=== PATIENT | male | born 2000 | race Caucasian/White ===

== ENCOUNTER 2020-10-10 10:57 | Emergency (ER) | payer SELFPAY ==
[2020-10-10 11:04] VITALS: BP 139/78; PULSE 69; RESP 16; TEMP 36.9; O2SAT 96; BMI 29.2
--- NOTE | 2020-10-10 11:04 | W.ED.UPPEXIN ---
HPI - Extremity Injury (Upper) General: Chief Complaint: Extremity Injury, Upper Stated Complaint: R HAND INJURY Time Seen by Provider: 10/10/20 11:00 Source: patient Mode of arrival: ambulatory Limitations: no limitations History of Present Illness: HPI narrative: Patient is a 20-year-old male who presents to ED today for evaluation of a right middle finger injury. Patient states he accidentally smashed the finger in between 2 pallets of wood. complaint: injury to: right and finger Onset (ago): hour(s) Other Extremity Injury: Right: fingers (middle) Other injuries: none Place: home Severity: moderate Exacerbating factors: movement of extremity and other (palpation) Context: crush Associated symptoms: Reports no associated symptoms Review of Systems Musc: Reports: extremity pain (R finger) Skin/Breast: Reports: other (no lacerations) Neuro: Denies: numbness in extremities or sensory changes Physical Exam Const: COMMON NORMALS: no acute distress, patient oriented x3, no limitations, healthy appearing and alert Extremity: NARRATIVE EXTREMITY EXAM: small R finger subungual hematoma; TTP to middle and distal phalanx; no lacerations/nail damage/breaks in skin Neuro: COMMON NORMALS: patient oriented x3 SENSORIUM/ORIENTATION: Yes alert Course Vital Signs: Vital signs: Vital Signs Temperature 98.5 F 10/10/20 11:04 Pulse Rate 69 10/10/20 11:04 Respiratory Rate 16 10/10/20 11:04 Blood Pressure 139/78 10/10/20 11:04 Pulse Oximetry 96 10/10/20 11:04 MDM - Extremity Injury (Upper) MDM Narrative: Medical decision making narrative: Will splint and have him follow up with orthopedics. Imaging Data^: XR R finger: Radiologist's impression: [address] [address] XRay Report Signed Patient: Angel ChoiAlbanamelia #: [id number] : 2000Acct#:[id number] Age/Sex: 20 / MADM Date: 10/10/20 Loc: ERRoom/Bed: Attending Dr: Ordering Provider/Ordering MD: Danielle Oconnor Date of Service: 10/10/20 Procedure(s): XR finger RT min 2V 78826 Accession Number(s): [id number] Report Number: [id number] PROCEDURE INFORMATION: Exam: XR Right Finger(s) Exam date and time: 10/10/2020 11:14 AM Age: 20 years old Clinical indication: Injury or trauma; Other: Smashed finger; Crushing; Right; Middle finger; Injury date: 10/10/20; Additional info: Crush injury; Middle finger TECHNIQUE: Imaging protocol: XR Right fingers. Views: Minimum 2 views. COMPARISON: No relevant prior studies available. FINDINGS: Bones/joints: There is a comminuted fracture of the tuft of the distal phalanx with about 1 mm of maximum displacement. Soft tissues: Normal. XR/XR finger RT min 2V 57510 IMPRESSION: Comminuted fracture of the tuft of the distal phalanx. Dictated By:Ant Downey Signed By:Evgeny Downey Date/Time:10/10/20 1204 DD/ 1202 Discharge Plan Discharge Patient Disposition: Home Clinical Impression: Fracture of distal phalanx of finger Qualifiers: Encounter type: initial encounter Finger: middle finger Fracture type: closed Fracture alignment: nondisplaced Laterality: right Qualified Code(s): S62.662A - Nondisplaced fracture of distal phalanx of right middle finger, initial encounter for closed fracture Condition: Stable Discharge Orders: Discharge ED (Routine); Ordered 10/10/20 Ordered By: Danielle Oconnor Patient Instructions: Fractures - Phalanx (Finger), Finger Fracture (ED) Activity Restrictions/Additional Instructions: As discussed case management should contact you shortly to set you up with your orthopedic follow-up appointment. You need to wear splint at all times apart from showering or bathing. Coding Level of Care Code ED Lost Charge Card Clerk for Elving Fwd Exam Problem Focused
--- NOTE | 2020-10-10 11:12 | XRR_ITS ---
PROCEDURE INFORMATION: Exam: XR Right Finger(s) Exam date and time: 10/10/2020 11:14 AM Age: 20 years old Clinical indication: Injury or trauma; Other: Smashed finger; Crushing; Right; Middle finger; Injury date: 10/10/20; Additional info: Crush injury; Middle finger TECHNIQUE: Imaging protocol: XR Right fingers. Views: Minimum 2 views. COMPARISON: No relevant prior studies available. FINDINGS: Bones/joints: There is a comminuted fracture of the tuft of the distal phalanx with about 1 mm of maximum displacement. Soft tissues: Normal. XR/XR finger RT min 2V 26099 IMPRESSION: Comminuted fracture of the tuft of the distal phalanx.
--- NOTE | 2020-10-11 09:19 | DCPLANNER ---
application defense manager had message to schedule a follow up appointment for patient with ortho for a distal phalanx fracture. application defense manager called the ortho clinic, spoke with Cindi, gave clinic patients information. application defense manager was told that patients information would be printed and reviewed. Clinic will call patient with appointment information.
--- NOTE | 2020-10-18 15:19 | DCPLANNER ---
medical coding manager called the ortho clinic to confirm if a follow up appointment had been scheduled for patient. medical coding manager was told that clinic has tried to call patient to schedule a follow up appointment, messages have been left, clinic is waiting for patient to call clinic back to schedule appointment.
== END 2020-10-10 12:10 | disposition home or self-care (01) ==
PROVIDERS: Emergency Provider Physician Assistant
DX: S62.662A Nondisplaced fracture of distal phalanx of right middle finger, initial encounter for closed fracture (principal); W23.0XXA Caught, crushed, jammed, or pinched between moving objects, initial encounter
CPT/HCPCS: 73140; 99282

== ENCOUNTER 2022-06-27 14:46 | Emergency (ER) | payer SELFPAY ==
[2022-06-27 14:51] VITALS: BP 151/82; PULSE 90; RESP 16; TEMP 36.4; O2SAT 96; BMI 26.8
--- NOTE | 2022-06-27 14:59 | ED_ITS ---
HPI - Wound/Laceration General: Chief Complaint: Wound/Laceration Stated Complaint: left hand lac Time Seen by Provider: 06/27/22 15:15 History of Present Illness: Patient is in today for a laceration to his left thumb. He reports that he was chopping wood with an axe and hit his left thumb with the axe. He reports that he has not had a tetanus in at least 5 years. Associated symptoms: Denies chills or fever(s) Review of Systems Const: Denies: fever(s) or chills Card: Denies: chest pain or palpitations Resp: Denies: dyspnea, productive cough or non-productive cough Musc: Reports: other (Laceration left thumb) Physical Exam Const: COMMON NORMALS: no acute distress, patient oriented x3 and alert Resp: COMMON NORMALS: normal respiratory effort and No use of accessory muscles Extremity: NARRATIVE EXTREMITY EXAM: Left thumb laceration horizontal approximately 1-1/2 cm. Full flexion extension noted to the thumb. Bleeding is controlled. Laceration appears fairly superficial without involvement of deeper structures. EXTREMITY IMAGE (FRONT): 1. 1 and half centimeter laceration horizontal. No involvement of deeper structures appreciated on initial exam. Bleeding is controlled Neuro: COMMON NORMALS: patient oriented x3 SENSORIUM/ORIENTATION: Yes alert Procedures Laceration left thumb: Site: upper extremity Side (If applicable): left Size (cm): 1.5 Description: linear and clean Depth: simple, single layer Local Anesthetic: lidocaine 1% Amount of anesthesia used (mL): 3 Pre-repair: wound explored, irrigated extensively and deep structures intact Skin layer closed with: other (Prolene) Number of sutures: 4 Course Vital Signs: Vital signs: Vital Signs Temperature 97.5 F L 06/27/22 14:51 Pulse Rate 90 06/27/22 14:51 Respiratory Rate 16 06/27/22 14:51 Blood Pressure 151/82 06/27/22 14:51 Pulse Oximetry 96 06/27/22 14:51 Oxygen Delivery Me thod 06/27/22 14:51 MDM - Wound/Laceration Medical Decision Making Consider laceration, fracture given the mechanism of injury, retained foreign bodies given the mechanism of injury X-ray thumb does not show any acute osseous deformity. Laceration was repaired with sutures see procedure note. Patient tolerated well with no immediate complications. Advised patient of aftercare for sutures. Follow-up in 5 to 7 days for suture removal. Take antibiotic as directed first dose given here today. Return to ER sooner as needed for new or worsening symptoms. tetanus updated Lab Data Radiology Impressions Finger X-Ray 06/27/22 15:20 IMPRESSION: 1. No fracture or bony injury identified. Soft tissue laceration. Discharge Plan Discharge Patient Disposition: Home Clinical Impression: Laceration Condition: Stable Prescriptions: New cephalexin 500 mg capsule 500 mg PO Q12H 7 Days Qty: 14 0RF Discharge Orders: Discharge ED (Routine); Ordered 06/27/22 Ordered By: Karen Nieves Discharge Diet: Usual diet Discharge Activity: Resume usual activity Patient Instructions: Care For Your Stitches (DC) Activity Restrictions/Additional Instructions: Keep the sutures clean and dry. You will need them removed in 5 to 7 days. You may return to the ER for suture removal or go to your primary care office. Monitor closely for signs of infection. Take antibiotic as directed. Coding Level of Care Code ED Jewel Supervisor for Kat Fwd Exam Expanded Problem Focused
--- NOTE | 2022-06-27 15:20 | XR_ITS ---
WS: [id number] Exam: XR finger LT min 2V 25453 Date/Time of Exam: 06/27/2022 3:22 PM Reason For Exam: Laceration left thumb with axe No acute fracture or dislocation. Soft tissue laceration along the medial aspect of the thumb. No sof t tissue foreign bodies. XR/XR finger LT min 2V 01690 IMPRESSION: 1. No fracture or bony injury identified. Soft tissue laceration.
[2022-06-27] MEDS: cephALEXin 500 mg Capsule PO (16:29)
[2022-06-27] MEDS: tetanus-dipt-pertussis 0.5 mL SDV IM (16:29)
== END 2022-06-27 16:46 | disposition home or self-care (01) ==
PROVIDERS: Emergency Provider Nurse Practitioner Family
DX: S61.012A Laceration without foreign body of left thumb without damage to nail, initial encounter (principal); W27.0XXA Contact with workbench tool, initial encounter; Z23 Encounter for immunization
CPT/HCPCS: 12001; 73140; 90471; 90715; 99283

== ENCOUNTER 2024-03-04 17:14 | Emergency (ER) | payer SELFPAY ==
--- NOTE | 2024-03-04 17:15 | XRR_ITS ---
PROCEDURE INFORMATION: Exam: XR Right Hand Exam date and time: 03/04/2024 5:39 PM Age: 23 years old Clinical indication: Pain; Hand; Right; Additional info: Injury TECHNIQUE: Imaging protocol: Radiologic exam of the right hand. Views: 3 or more views. COMPARISON: No relevant prior studies available. FINDINGS: Bones/joints: No acute fracture or dislocation. Deformed appearance of the tuft of the 3rd distal phalanx, likely from prior remote injury. Soft tissues: Soft tissues are unremarkable as visualized. XR/XR hand RT min 3V* [id number] IMPRESSION: No acute fracture or dislocation.
[2024-03-04 17:19] VITALS: BP 162/87; PULSE 74; RESP 16; TEMP 36.7; O2SAT 98; BMI 28.5
--- NOTE | 2024-03-04 17:36 | W.ED.EXTPRO ---
HPI - Extremity Problem General: Chief complaint: Extremity Injury, Upper Stated complaint: right hand injury Time Seen by Provider: 03/04/24 17:32 Source: patient Mode of arrival: ambulatory Limitations: no limitations History of Present Illness: 23-year-old male states that 4 days ago he was working on a car and the transmission fell and smashed his right hand. He states been having pain to his right palm since that he rates pain a 6 out of 10 currently has no lacerations pain is worse with movement he is able to make a fist and fully move all his fingers. Denies any other injuries Associated symptoms: Deny chest pain, fever(s) or rash Related Data Allergies Allergy/AdvReac Type Severity Reaction Status Date / Time No Known Allergies Allergy Verified 10/10/20 11:09 Review of Systems Const: Denies: fever(s), chills, body aches or change in appetite ENMT: Denies: throat pain or dental pain Card: Denies: chest pain Resp: Denies: dyspnea GI: Denies: abdominal pain, nausea, vomiting or diarrhea Musc: Reports: extremity pain; Denies: neck pain or back pain Skin/Breast: Denies: rash Neuro: Denies: headache(s) Physical Exam Const: COMMON NORMALS: no acute distress, patient oriented x3 and healthy appearing HENMT: COMMON NORMALS: normocephalic and atraumatic HEAD & SCALP: normocephalic and atraumatic Neck/C-Spine: COMMON NORMALS: full ROM and supple Chest: COMMONS NORMALS: normal inspection of the chest Resp: COMMON NORMALS: normal respiratory effort Extremity: COMMON NORMALS: full ROM NARRATIVE EXTREMITY EXAM: Tenderness over right palm no obvious deformities he is able to fully extend his fingers he is able to make a fist without any difficulty Neuro: COMMON NORMALS: patient oriented x3, moves all extremities and no focal motor deficits Psych: COMMON NORMALS: mental status grossly normal, Normal thought process present and cooperative THOUGHT PROCESS: Normal thought process present Skin: COMMON NORMALS: no rashes or lesions noted and no wounds GENERAL SKIN EXAM: no rashes or lesions noted Course Vital Signs: Vital signs: Vital Signs Temperature 98.1 F 03/04/24 17:19 Pulse Rate 74 03/04/24 17:19 Respiratory Rate 16 03/04/24 17:19 Blood Pressure 162/87 03/04/24 17:19 Pulse Oximetry 98 03/04/24 17:19 Oxygen Delivery Me thod Room Air 03/04/24 17:19 MDM - Extremity (Nontraumatic) Medical Decision Making Patient presents here with right hand contusion x-ray here shows no fracture patient stable for discharge she is to take Motrin Tylenol ice follow-up with PCP return if worsening Medical Records I reviewed the patient's medical records. XR interpretation done by ED provider, pending radiology final review ED provider radiology interpretation(s): xr r hand: no acute fx Discharge Plan Discharge Patient Disposition: Home Clinical Impression: Contusion of hand, right Condition: Stable Discharge Orders: Discharge ED (Routine); Ordered 03/04/24 Ordered By: Arun Price Discharge Diet: Advance as tolerated Discharge Activity: Resume usual activity Patient Instructions: Contusion in Adults (ED) Coding Level of Care Code ED Assembly Line Robot Operator for Kat Younger
[2024-03-04] MEDS: HYDROcodone-acetaminophen 5-325 mg Tablet 1 TAB PO (17:49)
== END 2024-03-04 18:04 | disposition home or self-care (01) ==
PROVIDERS: Emergency Provider Emergency Medicine
DX: S60.221A Contusion of right hand, initial encounter (principal); W20.8XXA Other cause of strike by thrown, projected or falling object, initial encounter
CPT/HCPCS: 73130; 99283

== ENCOUNTER 2025-04-04 17:00 | Emergency (ER) | payer SELFPAY ==
[2025-04-04 17:14] VITALS: BP 156/95; PULSE 76; RESP 14; TEMP 36.7; O2SAT 100; BMI 27.8
--- NOTE | 2025-04-04 17:28 | W.ED.EAR ---
HPI - Ear Problem General: Chief complaint: Ear Stated complaint: left ear pain Time Seen by Provider: 04/04/25 17:28 Source: patient Mode of arrival: ambulatory Limitations: no limitations History of Present Illness: Patient is a 24-year-old male presents to ED today with a complaint of left ear pain over the past few days. He feels like he cannot hear out of it well. He has not noticed any drainage. No injury or trauma. No fevers. MD Complaint: ear pain Location: left ear Duration: constant Severity: moderate Relieving factors: nothing Exacerbating factors: nothing Discharge from ear: no Associated symptoms: Reports ear or mastoid pain and hearing loss; Denies fever(s) or headache(s) Treatment prior to arrival: none Related Data Previous Rx's ?Medication ?Instructions ?Recorded amoxicillin 875 mg-potassium 1 tab PO BID #14 tabs 04/04/25 clavulanate 125 mg tablet Allergies Allergy/AdvReac Type Severity Reaction Status Date / Time No Known Allergies Allergy Verified 04/04/25 17:17 Review of Systems Const: Denies: fever(s) ENMT: Reports: ear or mastoid pain and change in hearing; Denies: throat pain, odynophagia, ear discharge, nasal discharge, nasal congestion, epistaxis or sinus pain GI: Denies: nausea or vomiting Neuro: Denies: headache(s) Physical Exam Const: COMMON NORMALS: no acute distress, average body habitus, no limitations, healthy appearing, alert and well nourished HENMT: COMMON NORMALS: external ears normal and EAC's normal FACE & SINUS: normal facial exam EXTERNAL EAR: Yes external ears normal, Yes mastoids normal and Yes no periauricular adenopathy EXTERNAL AUDITORY CANAL: EAC's normal TYMPANIC MEMBRANE: TM normal on the right and TM abnormal TM laterality: left Details: bulging, erythematous and loss of landmarks Neuro: SENSORIUM/ORIENTATION: Yes alert Course Vital Signs: Vital signs: Vital Signs Temperature 98.0 F 04/04/25 17:14 Pulse Rate 76 04/04/25 17:14 Respiratory Rate 14 04/04/25 17:14 Blood Pressure 156/95 04/04/25 17:14 Pulse Oximetry 100 04/04/25 17:14 Oxygen Delivery Me thod Room Air 04/04/25 17:14 MDM - Ear Medical Decision Making Patient has significant bulging and erythema to his left TM. Will place on Augmentin. Recommend follow-up with primary care later this week if symptoms or not improving. Differential Diagnosis Likely otitis externa, otitis media and ruptured TM Medical Records I reviewed the patient's medical records. No radiology studies performed this visit Discharge Plan Discharge Patient Disposition: Home Clinical Impression: Otitis media Qualifiers: Otitis media type: suppurative Chronicity: acute Laterality: left Recurrence: non-recurrent Spontaneous tympanic membrane rupture: without spontaneous rupture Qualified Code(s): H66.002 - Acute suppurative otitis media without spontaneous rupture of ear drum, left ear Condition: Stable Prescriptions: New amoxicillin-pot clavulanate 875-125 mg tablet 1 tab PO BID Qty: 14 0RF Discharge Orders: Discharge ED (Routine); Ordered 04/04/25 Ordered By: Danielle Oconnor Patient Instructions: Otitis Media - Adult, Ear Infection (ED), Patient Portal & Cameron Instructions Activity Restrictions/Additional Instructions: You were given a dose of antibiotics prior to discharge. Please fill your prescription in the morning. You may follow-up with primary care later this week if symptoms do not seem to be improving. Print Language: British Coding Level of Care Code ED Apn for Kat Younger
[2025-04-04 17:41] VITALS: BP 139/90; PULSE 100; O2SAT 99
== END 2025-04-04 17:42 | disposition home or self-care (01) ==
PROVIDERS: Emergency Provider Physician Assistant
DX: H66.002 Acute suppurative otitis media without spontaneous rupture of ear drum, left ear (principal)
CPT/HCPCS: 99283; J9999

== ENCOUNTER 2025-04-29 12:37 | Emergency (ER) | payer SELFPAY ==
[2025-04-29 13:04] VITALS: BMI 27.8
--- NOTE | 2025-04-29 13:22 | W.ED.EYEPROB ---
HPI - Eye Problem General: Chief complaint: Eye Problems Stated complaint: lt eye inj Time Seen by Provider: 04/29/25 13:17 Source: patient and family Mode of arrival: ambulatory Limitations: no limitations History of Present Illness: Patient is a 24-year-old male presents to ED today along with his significant other for evaluation of a possible piece of metal in his left eye that he felt yesterday after working with metal. He is not having any visual changes or visual loss. Tetanus is up-to-date. chief complaint: foreign body Onset (ago): day(s) Onset description: sudden Duration: constant Location: left eye Eye Symptoms: pain and foreign body sensation Place: home Mechanism: occurred while hammering/grinding Severity: moderate Associated symptoms: Reports no associated symptoms Treatments Prior to Arrival: irrigated eye Related Data Previous Rx's ?Medication ?Instructions ?Recorded amoxicillin 875 mg-potassium 1 tab PO BID #14 tabs 04/04/25 clavulanate 125 mg tablet erythromycin 5 mg/gram (0.5 %) eye 1 applic ophthalmic (eye) Q4H 7 04/29/25 ointment (3.5 gram tube) days #1 g Allergies Allergy/AdvReac Type Severity Reaction Status Date / Time No Known Allergies Allergy Verified 04/29/25 13:08 Review of Systems Eyes: Reports: other (fb sensation); Denies: change in vision, blurry vision, photophobia, floaters or seeing flashes Physical Exam Const: COMMON NORMALS: no acute distress, average body habitus, no limitations, healthy appearing, alert and well nourished Eye: COMMON NORMALS: Equal, round and reactive pupils present, EOMs intact bilaterally and conjunctivae normal GENERAL EYE: appearance normal, both eyes and all related structures and normal light reflex VISUAL ACUITY: Yes acuity normal PERIORBITAL: periorbital findings normal EYELID: eyelids normal CONJUNCTIVA: Yes conjunctivae normal PUPIL: Yes Equal, round and reactive pupils present DIRECT OPHTHALMOSCOPY: Yes normal light reflex EYE IMAGES:  1. small metal fb Neuro: SENSORIUM/ORIENTATION: Yes alert Procedures FB Removal Eye Location: eye (L) Topical anesthetic used: tetracaine Foreign body: metal Evidence of corneal penetration: No Technique: cotton tip swab and needle Procedure performed under: direct visualization with magnification Post-procedure medication: ophthalmic antibiotic Patient tolerated procedure: well Complications: residual rust ring MDM - Eye Problem Medical Decision Making Patient with a small metal foreign body to his left eye-present since yesterday. His tetanus is up-to-date. Metal was removed without difficulty using the tip of an 18-gauge needle. He was left with a residual rust ring. Contacted Dr. Smith's office and they are there until 3 PM today and will see him. Differential Diagnosis Likely corneal abrasion and corneal ulcer Medical Records I reviewed the patient's medical records. No radiology studies performed this visit Discharge Plan Discharge Patient Disposition: Home Clinical Impression: Corneal rust ring of left eye Condition: Stable Prescriptions: New erythromycin 5 mg/gram (0.5 %) ointment 1 applic ophthalmic (eye) Q4H 7 Days Qty: 1 0RF No Action amoxicillin-pot clavulanate 875-125 mg tablet 1 tab PO BID Qty: 14 0RF Discharge Orders: Discharge ED (Routine); Ordered 04/29/25 Ordered By: Danielle Oconnor Referrals: [facility] [Outside] Patient Instructions: Patient Portal & Cameron Instructions Print Language: [place] Coding Level of Care Code ED Ventilation Equipment Tender for Kat Younger
[2025-04-29] MEDS: erythromycin Op Oint 1 gm 1 APPLIC EYE-LEFT (14:30)
== END 2025-04-29 14:33 | disposition home or self-care (01) ==
PROVIDERS: Emergency Provider Physician Assistant
DX: T15.02XA Foreign body in cornea, left eye, initial encounter (principal); W44.E9XA Other non-magnetic metal objects entering into or through a natural orifice, initial encounter
CPT/HCPCS: 99283; J9999